=== PATIENT | male | born 1955 | race Caucasian/White ===

== ENCOUNTER 2023-02-21 09:46 | Outpatient (CLI) | payer MEDICARE, OTHER | END 2023-02-21 09:47 | disposition home or self-care (01) | LOC: CSHMRI 09:46 | PROVIDERS: ATTEND Nurse Practitioner Family | DX: M48.062 Spinal stenosis, lumbar region with neurogenic claudication (principal); Z98.890 Other specified postprocedural states; M47.816 Spondylosis without myelopathy or radiculopathy, lumbar region | CPT/HCPCS: 72148 ==